=== PATIENT | female | born 1940 | race Caucasian/White ===

== ENCOUNTER 2019-11-05 11:57 | Inpatient (IN) | payer OTHER ==
[~2019-11-05] VITALS: Ht 142.2 cm; Wt 83.5 kg
--- NOTE | ~2019-11-05 | EMS ---
[address] [address] EMS Patient Care Report Name: SARAH NAVARRETE Room #: REG SRUTHI Gurrola#: [id number] Admission: 11/05/19 Attend Phys: Discharge: Date of : 42 Report #: [id number] THIS REPORT FOR: //name// Report Transmitted: 11/05/2019 12:11 EMS Care Summary [facility] MED-ACT Incident [id number] @ 11/05/2019 11:25 Incident Location [address] [place] [address] Patient SARAH NAVARRETE Female, 79 Years 1940 Patient Address [address] [place] [address] [place], [place] [id number] Patient History Hypertension (HTN),Cardiac - Stent,Back Pain (Chronic), Patient Allergies No known allergies, Chief Complaint "I can hardly keep my eyes open" Disposition Transported No Lights/[place] Reason Unconscious/Fainting Transported To [facility] Narrative Arrived to find pt seated in a wheelchair inside a clinic. Pt c/o feeling "sleepy" and feeling like she can't keep her eyes open. SUPERVISOR PLEATING reported that pt came into the clinic to received a refill of her pain medication. She states she sees her every month to give her a refill and today, pt seemed lethargic, slurred and slower to respond than normal. Pt was found to be hypotensive with [address] [address] EMS Patient Care Report Name: SARAH NAVARRETE Room #: REG [facility]#: [id number] Admission: 11/05/19 Attend Phys: Discharge: Date of : 42 Report #: [id number] a decreased SpO2. Pt takes pain medication for chronic back pain and also has a pain pump. The SUPERVISOR PLEATING reported pt has a hx of intentionally overdosing on her pain medication, but pt denied taking more than she is prescribed. Pt also reported she took her normal dose of HTN medication as well. She did report that she took 80mg of Lasix last night and states she has not taken any Lasix for "a while." Pt denied dizziness, N/V, recent illness, syncope, SOA, fever, diarrhea. Pt was able to stand and transfer to cot and lay down with her feet up. Pt was secured to cot and VS taken. An IV was established and fluid bolus began. En route to ED, 12-lead done. Pt's BP increased but she continued to c/o feeling tired. Pt was taken to room 9 and moved to ED bed via sheet drag. Verbal report given to RN. Initial Vitals @11:51P: 54,BP: 115/53,SpO2: 94, @11:40P: 49,SpO2: 96, @11:36P: 53,R: 14,BP: 70/28,Pain: 0/10,GCS: 15,SpO2: 86,Revised Trauma: 10, @11:42P: 51,R: 14,BP: 117/76,Glucose: 92,SpO2: 96, @11:47P: 50,FL Suspected: false Assessments @11:32MENTAL:Person Oriented,Time Oriented,Place Oriented,Event Oriented,SKIN:Pale,HEENT:Eyes: Left Pupil: 4-mm,Eyes: Right Pupil: 4-mm,Head/Face: No Abnormalities,LUNG SOUNDS:General: No Abnormalities,ABDOMEN:General: No Abnormalities,PELVIS//GI:EXTREMITIES:PULSE:NEURO:Slurred Speech, Impression Hypotension Procedures @11:37Oxygen FlowRate: 3 Device: Nasal Cannula (NC) Response: ImprovedSucceeded@11:4712-Lead ECGResponse: UnchangedSucceeded@11:41Normal Saline (.9% NaCl) 200cc (18 ga) Site: Antecubital-RightResponse: ImprovedSucceeded Timeline 11:23,Call Received 11:23,Psap Call 11:25,Dispatched 11:26,En Route 11:30,On Scene 11:31,At Patient 11:36,BP: 70/28 M,PULSE: 53,RR: 14 R,SPO2: 86 Ox,ETCO2: ,BG: ,PAIN: 0,GCS: 15, 11:37,Oxygen FlowRate: 3 Device: Nasal Cannula (NC) Response: ImprovedSucceeded, 11:40,BP: / M,PULSE: 49,RR: R,SPO2: 96 Ox,ETCO2: ,BG: ,PAIN: ,GCS: , 11:41,Normal Saline (.9% NaCl) 200cc 18 ga Site: Antecubital-Right,Response: [facility] [address] [place] [address] EMS Patient Care Report Name: ROSALBASARAH Room #: CASPER [facility]rola#: [id number] Admission: 11/05/19 Attend Phys: Discharge: Date of : 42 Report #: [id number] ImprovedSucceeded, 11:42,BP: 117/76 M,PULSE: 51,RR: 14 R,SPO2: 96 Ox,ETCO2: ,B,PAIN: ,GCS: , 11:43,Depart Scene 11:47,12-Lead ECG,Response: UnchangedSucceeded, 11:47,BP: / M,PULSE: 50,RR: R,SPO2: Ox,ETCO2: ,BG: ,PAIN: ,GCS: , 11:49,At Destination 11:51,BP: 115/53 M,PULSE: 54,RR: R,SPO2: 94 Ox,ETCO2: ,BG: ,PAIN: ,GCS: , 12:11,Call Closed Disclaimer v1.1 Copyright 2020 [employer] This EMS Care Summary contains data elements from the applicable legal record (which may be displayed differently). It is designed to provide pertinent information for the following purposes: continuity of care, clinical quality, and state data reporting. The complete legal record is available to ED staff and administrators of the receiving hospital in [employer]'s Patient Tracker. All data is provided "as is."
[2019-11-05 11:57] VITALS: BP 101/63
[2019-11-05] MEDS ORDERED: ADULT ASPIRIN R81 MG PO (12:29)
[2019-11-05] MEDS ORDERED: CARVEDILOL12.5 MG PO (12:29)
[2019-11-05] MEDS ORDERED: CALCIUM CARBON500 MG PO (12:29)
[2019-11-05] MEDS ORDERED: CLONIDINE HCL0.3 M3 PO (12:30)
[2019-11-05] MEDS ORDERED: CLONIDINE HCL0.2 M2 PO (12:30)
[2019-11-05] MEDS ORDERED: FUROSEMIDE 20 M20 MG PO (12:31)
[2019-11-05] MEDS ORDERED: LEVO-T100 MCG PO (12:31)
[2019-11-05] MEDS ORDERED: ZETIA10 MG PO (12:31)
[2019-11-05] MEDS ORDERED: LEXAPRO 10 MG T10 M1 PO (12:32)
[2019-11-05] MEDS ORDERED: MULTI VITAMIN1 EACH PO (12:33)
[2019-11-05] MEDS ORDERED: LISINOPRIL2.5 MG PO ×2 (12:33)
[2019-11-05] MEDS ORDERED: PROTONIX 20 MG20 MG PO (12:34)
[2019-11-05] MEDS ORDERED: NITROGLYCERIN0.3 M1 SUBLING (12:34)
[2019-11-05] MEDS ORDERED: ROZEREM 8 MG TAB8 M1 PO (12:35)
[2019-11-05] MEDS ORDERED: PLAVIX 75 MG TA75 MG PO (12:35)
[2019-11-05] MEDS ORDERED: K-DUR 20 MEQ T20 MEQ PO (12:35)
[2019-11-05] MEDS ORDERED: SINEMET 10-1001 EAC1 PO (12:36)
[2019-11-05] MEDS ORDERED: TIZANIDINE HCL4 M1 PO (12:37)
[2019-11-05] MEDS ORDERED: VITAMIN D310 MC2 PO (12:38)
[2019-11-05 13:11] LABS: ABSOLUTE NEUTROPHILS 5.4 thou/uL (1.4-8.2); BASOPHILS 0.4 % (0.0-2.0); HEMATOCRIT 37.3 % (37.0-47.0); HEMOGLOBIN 12.4 gm/dL (12.0-15.0); LYMPHOCYTES 14.8 % (24.0-44.0); MCH 31.3 pg (26.0-34.0); MCHC 33.2 g/dL (28.0-37.0); MCV 94.3 fL (80.0-100.0); PLATELET COUNT 186 thou/uL (150-400); POLYS 75.8 % (36.0-66.0); RBC 3.96 mil/uL (4.20-5.00); RDW 14.6 % (10.5-14.5); WBC 7.1 thou/uL (4.0-11.0)
[2019-11-05 13:32] LABS: ANION GAP 4 mmol/L (7-16); BUN 28 mg/dL (7-18); CALCIUM 10.3 mg/dL (8.5-10.1); CHLORIDE 101 mmol/L (98-107); CO2 31 mmol/L (21-32); CREATININE 1.4 mg/dL (0.6-1.0); GLUCOSE 107 mg/dL (74-106); POTASSIUM 4.1 mmol/L (3.5-5.1); SODIUM 136 mmol/L (136-145)
[2019-11-05 13:39] LABS: ALBUMIN 3.5 g/dL (3.4-5.0); SGOT 22 U/L (15-37); SGPT 11 U/L (30-65); TOTAL BILIRUBIN 0.4 mg/dL (<0.1-1.0); TOTAL PROTEIN 6.6 g/dL (6.4-8.2); TROPONIN-I <0.06 ng/mL (<0.06)
--- NOTE | 2019-11-05 14:15 | NUR ---
DR. WATSON HERE TO EXAMINE PATIENT
[2019-11-05] MEDS ORDERED: CLONAZEPAM 0.50.5 M1 PO (14:17)
--- NOTE | 2019-11-05 14:25 | NUR ---
Ashley ESPARZA HERE TO EXAMINE PATIENT
[2019-11-05] MEDS ORDERED: HYDROCODON-ACE1 EAC8 PO (14:26)
[2019-11-05] MEDS ORDERED: LYRICA100 MG PO (14:27)
[2019-11-05] MEDS ORDERED: LEXAPRO20 MG PO (14:28)
--- NOTE | 2019-11-05 14:33 | NUR ---
Ashley ELIAS MANAGER [employer]AGE HERE TO EXAMINE PATIENT.
[2019-11-05] MEDS ORDERED: SINEMET 25-1001 EAC1 PO (14:35)
[2019-11-05] MEDS ORDERED: TRAZODONE 150150 M1 PO (14:37)
[2019-11-05] MEDS ORDERED: DILAUDID1 MG/1 M1 PO (14:38)
--- NOTE | 2019-11-05 14:56 | NUR ---
PT. DAUGHTER GOLDIE MAY BE REACHED AT [phone] PT. DAUGHTER DARRELL MAY BE REACHED AT [phone]
[2019-11-05 15:44] LABS: URINE BILIRUBIN NEGATIVE (Negative); URINE BLOOD NEGATIVE (Negative); URINE CLARITY CLEAR; URINE COLOR YELLOW; URINE GLUCOSE-RANDOM* NEGATIVE (Negative); URINE KETONES NEGATIVE (Negative); URINE LEUKOCYTES-REFLEX NEGATIVE (Negative); URINE NITRITE-REFLEX NEGATIVE (Negative); URINE PROTEIN (DIPSTICK) NEGATIVE (Negative); URINE SPECIFIC GRAVITY <= 1.005 (1.005-1.035); URINE UROBILINOGEN 0.2 E.U./dl (0.2-1.0)
[2019-11-05 15:59] VITALS: BP 101/70
[2019-11-05 16:14] VITALS: BP 115/35
[2019-11-05 16:24] VITALS: BP 151/58
--- NOTE | 2019-11-05 17:59 | NUR ---
PT ADMITED FROM ER. ADMISSION HX AND ASSESSMENT COMPLETED. PT ALERT AND ORIENTED. VSS. DENIED HAVING PAIN OR DISCOMFORT. PT ORIENTED TO THE ROOM AND THE CALL LIGHT SYSTEM. ORDERS NOTED. WILL CONTINUE TO MONITOR.
[2019-11-05 19:47] VITALS: BP 142/59
[2019-11-05 23:54] VITALS: BP 129/50
[2019-11-06 05:28] LABS: CREATININE 0.8 mg/dL (0.6-1.0); MAGNESIUM 1.9 mg/dL (1.8-2.4); POTASSIUM 4.1 mmol/L (3.5-5.1)
[2019-11-06 05:32] VITALS: BP 120/49
[2019-11-06 05:49] LABS: ABSOLUTE NEUTROPHILS 3.3 thou/uL (1.4-8.2); BASOPHILS 0.6 % (0.0-2.0); HEMOGLOBIN 12.8 gm/dL (12.0-15.0); LYMPHOCYTES 25.9 % (24.0-44.0); MCH 31.4 pg (26.0-34.0); MCHC 32.9 g/dL (28.0-37.0); MCV 95.3 fL (80.0-100.0); MONOCYTES 7.7 % (1.0-8.0); PLATELET COUNT 173 thou/uL (150-400); POLYS 61.8 % (36.0-66.0); RBC 4.09 mil/uL (4.20-5.00); RDW 14.7 % (10.5-14.5); WBC 5.4 thou/uL (4.0-11.0)
[2019-11-06 07:15] VITALS: BP 86/42
--- NOTE | 2019-11-06 08:22 | NUR ---
ASSUME CARE 1900. PT/VITALS STABLE. CHRONIC BACK AND LOWER EXTREMITY PAIN. PAIN PUMP NOTED LL BACK. INTERMITTENT HYDROCODONE FOR PAIN. SR/SB ON MONITOR. NO DISTRESS NOTED. UP TO BSC. ASSESSEMENT CHARTED. PROGRESSING MODERATELY TO POC. PLAN IS TO CONTINUE TO MONITOR BP AND ACTIVITY LEVEL. WILL CONTINUE TO MONITOR AND FOLLOW WITH POC
--- NOTE | 2019-11-06 10:58 | EKG ---
[facility] [place] [address] ELECTROCARDIOGRAM REPORT Name: SARAH NAVARRETE Room #: 215-P ADM IN M.R.#: [id number] Admission: 11/05/19 Attend Phys: Moses Browning MD Discharge: Date of : 42 Report #: [id number] THIS REPORT FOR: cc: FAM - Family physician unknown FAM - Family physician unknown Hola Plunkett MD ~ THIS REPORT FOR: //name// [facility] ED Test Date: 2019-11-05 Test Time: 12:02:25 Pat Name: SARAH NAVARRETE Department: Room: [facility] Gender: F Admissions Representative: PATRICIA : 1940 Requested By: Cami Brewer Order Number: [id number] MD: Hola Plunkett Measurements Intervals [place] Rate: 52 P: 29 [place]: 165 QRS: -22 QRSD: 90 T: 3 QT: 440 QTc: 410 Interpretive Statements Sinus arrhythmia Borderline left axis deviation Low voltage, precordial leads RSR' in V1 or V2, probably normal variant No previous ECG available for comparison Electronically Signed On 11-06-2019 10:56:19 CDT by Hola Plunkett [email or web address] <ELECTRONICALLY SIGNED> By: Hola Plunkett MD 11/06/19 1056 120 120 Hola Plunkett MD /[facility]
[2019-11-06 11:00] VITALS: BP 149/48
--- NOTE | 2019-11-06 16:16 | NUR ---
ASSESSMENT CHARTED. PT ALERT AND ORIENTED. HAD LOW BP THIS AM. DR WATSON NOTIFIED. ORDERS NOTED. EVALUATED BY PT/OT. UP IN THE CHAIR THIS SHIFT. WILL CONTINUE TO MONITOR.
[2019-11-06 16:20] VITALS: BP 130/41
[2019-11-06 19:16] VITALS: BP 148/55
[2019-11-07 04:19] LABS: HEMATOCRIT 33.2 % (37.0-47.0); HEMOGLOBIN 11.2 gm/dL (12.0-15.0); MCH 31.8 pg (26.0-34.0); MCHC 33.7 g/dL (28.0-37.0); MCV 94.4 fL (80.0-100.0); RBC 3.51 mil/uL (4.20-5.00); RDW 14.2 % (10.5-14.5); WBC 5.2 thou/uL (4.0-11.0)
[2019-11-07 04:24] LABS: CALCIUM 9.4 mg/dL (8.5-10.1); CREATININE 0.7 mg/dL (0.6-1.0); POTASSIUM 4.3 mmol/L (3.5-5.1)
--- NOTE | 2019-11-07 07:15 | NUR ---
ASSUMED PT CARE AT 1900, PT IS AWAKE, ALERT AND ORIENTEDX4, SR ON THE MONITOR, ASSESSMENTS CHARTED, VSS, ON 2L NC, COMPLAINED OF BACK PAIN, SCHEDULED MEDS GIVEN ORDERED, RESTING IN BED, NO DISTRESS NOTED
[2019-11-07 07:30] VITALS: BP 98/35
[2019-11-07 16:00] VITALS: BP 127/50
--- NOTE | 2019-11-07 16:36 | NUR ---
ASSESSMENT CHARTED. PT HAS BEEN SLEEPY MOST OF THIS SHIFT. VERY DROWSY. DR WATSON AWARE. MEDS ADJUSTED. FAMILY UPDATED ON PT'S PROGRESS. WILL CONTINUE TO MONITOR.
[2019-11-07 20:30] VITALS: BP 161/73
[2019-11-08] VITALS (7 sets, daily range): BP systolic 141–210; BP diastolic 67–95
--- NOTE | 2019-11-08 08:21 | NUR ---
pt restless most of the evening bp elevated, c/o platt, increasing anxiety, feeling soa with 2l/nc and sating 95% stated she feels congested, talked to rn practioner several times thru the noc, meds ordered and vs improved PLATT resolved and pt able to relax and sleep a few hrs, report given next shift to con't with ppoc.
[2019-11-08] MEDS ORDERED: TIZANIDINE4 MG/1 TA1 PO (12:21)
--- NOTE | 2019-11-08 13:18 | NUR ---
ASSUMED CARE 0700. PT ALERT X4, DENIES PAIN, DENIES SOB, 2L NASAL CANNULA, ELEVATED BP TREATED WITH SCHEDULED MEDICATIONS. UP WITH MINIMAL ASSISTANCE.NST ON TELE. PT TO [place] HOME WITH SELF CARE. PT INDICATED SHE HAS A PERSONAL HOME HEALTH AIDE. PT'S DAUGHTERS DARRELL AND GOLDIE SPOKE TO PHYSICIAN. IV AND TELE REMOVED. REVIEWED DISCHARGE PAPERWORK AND MEDICAITON.
== END 2019-11-08 14:33 | disposition home or self-care (01) | DRG 312 ==
LOC: ER 11:57 → 2N 14:23 → EROBS 14:23 → 2N 16:18
PROVIDERS: Nurse Practitioner; Physician Assistant; ADMIT Hospitalist
DX: I95.2 Hypotension due to drugs (principal); N17.0 Acute kidney failure with tubular necrosis; T50.995A Adverse effect of other drugs, medicaments and biological substances, initial encounter; E03.9 Hypothyroidism, unspecified; K21.9 Gastro-esophageal reflux disease without esophagitis; M48.00 Spinal stenosis, site unspecified; M19.90 Unspecified osteoarthritis, unspecified site; E78.5 Hyperlipidemia, unspecified; I25.10 Atherosclerotic heart disease of native coronary artery without angina pectoris; G89.29 Other chronic pain; I12.9 Hypertensive chronic kidney disease with stage 1 through stage 4 chronic kidney disease, or unspecified chronic kidney disease; N18.9 Chronic kidney disease, unspecified; M54.10 Radiculopathy, site unspecified; F32.9 Major depressive disorder, single episode, unspecified; Z66 Do not resuscitate; I25.2 Old myocardial infarction; Z95.5 Presence of coronary angioplasty implant and graft; Z99.81 Dependence on supplemental oxygen; Z79.82 Long term (current) use of aspirin; Z79.891 Long term (current) use of opiate analgesic; Z79.899 Other long term (current) drug therapy; Z88.5 Allergy status to narcotic agent; Z88.8 Allergy status to other drugs, medicaments and biological substances; Z86.74 Personal history of sudden cardiac arrest
CPT/HCPCS: 10081